=== PATIENT | female | born 1990 | race Caucasian/White ===

== ENCOUNTER 2018-08-23 10:19 | Emergency (ER) | payer SELFPAY ==
[~2018-08-23] VITALS: Ht 180.3 cm; Wt 83.9 kg
[2018-08-23 10:39] VITALS: BP 129/69
[2018-08-23] MEDS ORDERED: PENICILLIN G BENZATHINE 2.4 MMU/4 ML ML IM ONE ×2 (10:57→11:00)
[2018-08-23] MEDS ORDERED: DEXAMETHASONE SOD PHOSPHATE 4 MG/ML VIAL ONE (10:57)
[2018-08-23] MEDS ORDERED: DEXAMETHASONE SOD PHOSPHATE 4 MG/ML VIAL IM ONE (11:00)
== END 2018-08-23 11:12 | disposition home or self-care (01) ==
LOC: ER 10:19
DX: J02.0 Streptococcal pharyngitis (principal); Z88.8 Allergy status to other drugs, medicaments and biological substances
CPT/HCPCS: 96372 ×2; 99283; J0558; J1100

== ENCOUNTER 2018-09-04 12:04 | Emergency (ER) | payer SELFPAY ==
[~2018-09-04] VITALS: Ht 180.3 cm; Wt 83.9 kg
[2018-09-04 12:04] VITALS: BP 115/84
[2018-09-04 14:42] LABS: MONOTEST NEGATIVE (NEGATIVE)
--- NOTE | 2018-09-04 14:57 | NUR ---
Patient discharged to home in stable condition. Written and verbal after care instructions given. Patient verbalizes understanding of instruction.
== END 2018-09-04 14:56 | disposition home or self-care (01) ==
LOC: ER 12:04
DX: J02.9 Acute pharyngitis, unspecified (principal); Z88.6 Allergy status to analgesic agent
CPT/HCPCS: 36415; 86308-TC; 86403-TC; 87070-TC

== ENCOUNTER 2021-09-27 20:04 | Emergency (ER) | payer OTHER ==
[~2021-09-27] VITALS: Ht 180.3 cm; Wt 86.2 kg
[2021-09-27 21:24] VITALS: BP 110/72
[2021-09-27] MEDS ORDERED: ONDANSETRON 4 MG TAB.RAPDIS ONE (21:55)
[2021-09-27] MEDS ORDERED: IBUPROFEN 600 MG TABLET ONE (21:55)
--- NOTE | 2021-09-27 21:57 | NUR ---
TIAGO HANNA COLLECTED AND SENT TO LAB
[2021-09-27] MEDS ORDERED: ONDANSETRON 4 MG TAB.RAPDIS SL ONE (22:00)
[2021-09-27] MEDS ORDERED: IBUPROFEN 600 MG TABLET PO ONE (22:00)
[2021-09-27] MEDS ORDERED: IBUP-1955 PO (22:50)
[2021-09-27] MEDS ORDERED: ONDA4TAB5 PO (22:50)
--- NOTE | 2021-09-27 23:05 | NUR ---
Patient discharged to home in stable condition. Written and verbal after care instructions given. Patient verbalizes understanding of instruction.
== END 2021-09-27 23:05 | disposition home or self-care (01) ==
LOC: ER 20:04
DX: B34.9 Viral infection, unspecified (principal); Z20.822 Contact with and (suspected) exposure to COVID-19; Z28.310 Unvaccinated for COVID-19
CPT/HCPCS: 87426; 87804; 99283; C9803; Q0162

== ENCOUNTER 2021-11-28 15:48 | Emergency (ER) | payer OTHER ==
[~2021-11-28] VITALS: Ht 180.3 cm; Wt 88.5 kg
[2021-11-28 15:48] VITALS: BP 114/68
[~2021-11-28 15:48] MED LIST: IBUP-1955 PO; ONDA4TAB5 PO
--- NOTE | 2021-11-28 15:48 | NUR ---
c/o left ankle pain s/p tripped on uneven pavement last night, -ko. TOOK [employer]LO[employer].
[2021-11-28] MEDS ORDERED: ACETAMINOPHEN 325 MG TABLET PO ONE (16:30)
[2021-11-28] MEDS ORDERED: ACETAMINOPHEN 325 MG TABLET ONE (16:57)
[2021-11-28] MEDS ORDERED: NAPR-1009 PO (17:25)
[2021-11-28] MEDS ORDERED: HYDR-4303 PO (17:25)
--- NOTE | 2021-11-28 17:37 | NUR ---
Patient discharged to home in stable condition. Written and verbal after care instructions given. Patient verbalizes understanding of instruction.
== END 2021-11-28 17:37 | disposition home or self-care (01) ==
LOC: ER 16:04
DX: S93.402A Sprain of unspecified ligament of left ankle, initial encounter (principal); S80.211A Abrasion, right knee, initial encounter; Z88.8 Allergy status to other drugs, medicaments and biological substances; Z60.2 Problems related to living alone; Z79.899 Other long term (current) drug therapy; W18.30XA Fall on same level, unspecified, initial encounter; Y93.89 Activity, other specified; Y92.89 Other specified places as the place of occurrence of the external cause; Y99.8 Other external cause status
CPT/HCPCS: 73610-TC; 73630-TC